=== PATIENT | female | born 1955 | race Two or more races ===

== ENCOUNTER → 2021-04-11 | Outpatient (CLI) | payer MEDICAID ==
[2021-04-11 10:00] LABS: Basophils # (auto) 0.1 10 ^3/uL (0-0.2); Basophils % (auto) 0.8 % (0.0-2.0); Eosinophils # (auto) 0.2 10 ^3/uL (0-0.8); Eosinophils % (auto) 3.7 % (0.0-7.0); Hematocrit 32.2 % (36.0-46.0); Hemoglobin 10.3 g/dL (12.2-16.2); Lymphocytes # (auto) 1.7 10 ^3/uL (0.4-5.4); Mean Corpuscular Hemoglobin 28.4 pg (28.0-32.0); Mean Corpuscular Hgb Conc. 32.1 g/dL (32.0-36.0); Mean Corpuscular Volume 88.5 fL (80.0-100.0); Monocytes # (auto) 0.3 10 ^3/uL (0-1.3); Neutrophils % (auto) 63.5 % (37.0-80.0); Red Blood Cells 3.64 10^6/uL (4.0-5.20); Red Cell Distribution Width 14.6 % (11.8-14.3); White Blood Cell 6.3 10^3/uL (4.4-10.8)
[2021-04-11 10:34] LABS: Albumin 3.5 g/dL (3.4-5.0); Calcium 7.3 mg/dL (8.5-10.1); Potassium 4.8 mmol/L (3.5-5.1)
[2021-04-11 10:43] LABS: BUN/Creatinine Ratio 9.9; Bilirubin, Total 0.5 mg/dL (0.2-1.0); Total Protein 6.5 g/dL (6.4-8.2)
== END | disposition home or self-care (01) ==
LOC: LAB 09:20
PROVIDERS: ATTEND Nurse Practitioner Family
DX: Z00.00 Encounter for general adult medical examination without abnormal findings (principal); I10 Essential (primary) hypertension; E11.9 Type 2 diabetes mellitus without complications; E03.9 Hypothyroidism, unspecified
CPT/HCPCS: 36415; 80053; 80061; 82043; 83036; 84439; 84443; 85025

== ENCOUNTER 2021-04-12 11:32 | Inpatient (IN) | payer MEDICAID ==
[~2021-04-12] VITALS: Ht 157.5 cm; Wt 63.8 kg
[2021-04-12 12:29] LABS: Basophils # (auto) 0.1 10 ^3/uL (0-0.2); Eosinophils # (auto) 0.1 10 ^3/uL (0-0.8); Eosinophils % (auto) 2.6 % (0.0-7.0); Hematocrit 32.4 % (36.0-46.0); Hemoglobin 10.4 g/dL (12.2-16.2); Lymphocytes # (auto) 1.4 10 ^3/uL (0.4-5.4); Lymphocytes % (auto) 24.5 % (10.0-50.0); Mean Corpuscular Hemoglobin 28.4 pg (28.0-32.0); Mean Corpuscular Hgb Conc. 31.9 g/dL (32.0-36.0); Monocytes # (auto) 0.2 10 ^3/uL (0-1.3); Monocytes % (auto) 3.6 % (0.0-12.0); Neutrophils # (auto) 3.9 10 ^3/uL (1.6-8.6); Neutrophils % (auto) 68.3 % (37.0-80.0); Red Blood Cells 3.64 10^6/uL (4.0-5.20); Red Cell Distribution Width 14.3 % (11.8-14.3); White Blood Cell 5.7 10^3/uL (4.4-10.8)
[2021-04-12 12:45] LABS: Albumin 3.5 g/dL (3.4-5.0); Calcium 6.6 mg/dL (8.5-10.1); Potassium 4.6 mmol/L (3.5-5.1)
[2021-04-12 12:50] LABS: BUN/Creatinine Ratio 10.2; Bilirubin, Total 0.4 mg/dL (0.2-1.0); Total Protein 7.1 g/dL (6.4-8.2)
[2021-04-12] MEDS ORDERED: CALCIUM GLUC 1,000mg/50ml-NS 50 ML IV ONE (15:00)
[2021-04-12] MEDS ORDERED: SODIUM CHLORIDE 0.9% 1,000 ML IV ONE (20:00)
[2021-04-12] MEDS ORDERED: LABETALOL HCL 5 MG/ML 4ML SYRINGE IV ONE (20:15)
[2021-04-12 20:39] LABS: Urine Bacteria FEW /hpf (None Seen); Urine Blood 1+ /uL (Negative); Urine Specific Gravity 1.012 (1.001-1.035); Urine WBC 7 /hpf (0 - 5)
[2021-04-12] MEDS ORDERED: hydrALAZINE HCL 20 MG/ML VL IV PRN (22:15)
[2021-04-12] MEDS ORDERED: HYDROcodone-ACET 5/325MG TAB PO PRN (23:15)
[2021-04-12] MEDS ORDERED: DOCUSATE SOD 100 MG CAP PO PRN (23:15)
[2021-04-12] MEDS ORDERED: DEXTROSE (50%) 50ML SYRG IV PRN (23:15)
[2021-04-12] MEDS ORDERED: amLODIPine BESYLATE 5 MG TAB PO ONE (23:15)
[2021-04-12] MEDS ORDERED: ONDANSETRON HCL 4 MG/2 ML VIAL IV PRN (23:15)
[2021-04-12] MEDS ORDERED: ACETAMINOPHEN 325 MG TAB PO PRN (23:15)
[2021-04-13] MEDS ORDERED: NITROGLYCERIN 0.4 MG SL TAB SL PRN
[2021-04-13] MEDS ORDERED: MORPHINE SULFATE INJECTION 2 MG/ML SYRG IV PRN
[2021-04-13] MEDS: SODIUM CHLORIDE 0.9% 1,000 ML IV SCH ×2 (02:19→20:30)
[2021-04-13 05:39] LABS: Basophils # (auto) 0.1 10 ^3/uL (0-0.2); Basophils % (auto) 0.9 % (0.0-2.0); Eosinophils # (auto) 0.2 10 ^3/uL (0-0.8); Eosinophils % (auto) 2.7 % (0.0-7.0); Hematocrit 31.1 % (36.0-46.0); Lymphocytes # (auto) 2.2 10 ^3/uL (0.4-5.4); Lymphocytes % (auto) 32.2 % (10.0-50.0); Mean Corpuscular Hemoglobin 28.2 pg (28.0-32.0); Mean Corpuscular Hgb Conc. 32.2 g/dL (32.0-36.0); Mean Corpuscular Volume 87.7 fL (80.0-100.0); Monocytes # (auto) 0.3 10 ^3/uL (0-1.3); Monocytes % (auto) 4.1 % (0.0-12.0); Neutrophils # (auto) 4.2 10 ^3/uL (1.6-8.6); Neutrophils % (auto) 60.1 % (37.0-80.0); Nucleated Red Blood Cells % 0.1 %; Red Blood Cells 3.54 10^6/uL (4.0-5.20); Red Cell Distribution Width 14.4 % (11.8-14.3); White Blood Cell 6.9 10^3/uL (4.4-10.8)
[2021-04-13 05:57] LABS: Potassium 3.9 mmol/L (3.5-5.1)
[2021-04-13 06:07] LABS: BUN/Creatinine Ratio 9.8; Bilirubin, Total 0.3 mg/dL (0.2-1.0); Calcium 6.6 mg/dL (8.5-10.1); Total Protein 6.1 g/dL (6.4-8.2)
[2021-04-13] MEDS: ACCU-CHEK COMFORT CURVE STRIP VI SCH ×4 (07:05→21:45)
[2021-04-13] MEDS: HEPARIN SODIUM (PORCINE) 5000 UNITS/ML 1ML VIAL SC SCH ×3 (07:06→21:38)
[2021-04-13] MEDS: InsuLIN REG 1unit/0.01ml Soln (100units/ml) SC SCH ×4 (07:07→21:46)
[2021-04-13] MEDS ORDERED: ZINC SULFATE 220mg CAP or TAB PO SCH (10:00)
[2021-04-13] MEDS ORDERED: ASCORBIC ACID 500 MG TAB PO SCH (10:00)
[2021-04-13] MEDS: METOPROLOL TARTRATE 50 MG TAB PO SCH ×2 (11:33→21:35)
[2021-04-13] MEDS: ASPirin 81 mg TAB PO SCH (11:33)
[2021-04-13] MEDS: amLODIPine BESYLATE 5 MG TAB PO SCH (11:34)
[2021-04-13] MEDS: MULTIPLE VITAMIN TAB PO SCH (11:34)
[2021-04-13 15:10] VITALS: BP 145/65
[2021-04-13 16:55] VITALS: BP 145/65
[2021-04-13 20:00] VITALS: BP 145/70
[2021-04-13] MEDS: ATORVASTATIN 20 MG TAB PO SCH (21:35)
[2021-04-13 21:40] VITALS: BP 146/73
[2021-04-14 04:25] VITALS: BP 121/60
[2021-04-14] MEDS: InsuLIN REG 1unit/0.01ml Soln (100units/ml) SC SCH ×4 (05:28→22:00)
[2021-04-14] MEDS: SODIUM CHLORIDE 0.9% 1,000 ML IV SCH (05:28)
[2021-04-14 07:15] LABS: Calcium 6.7 mg/dL (8.5-10.1); Potassium 4.6 mmol/L (3.5-5.1)
[2021-04-14 07:21] LABS: BUN/Creatinine Ratio 9.9; Phosphorus 6.2 mg/dL (2.5-4.90)
[2021-04-14 08:00] VITALS: BP 122/87
[2021-04-14 09:00] VITALS: BP 122/87
[2021-04-14] MEDS: ACCU-CHEK COMFORT CURVE STRIP VI SCH ×4 (09:47→22:00)
[2021-04-14] MEDS: HEPARIN SODIUM (PORCINE) 5000 UNITS/ML 1ML VIAL SC SCH ×3 (09:47→22:42)
[2021-04-14] MEDS: ASPirin 81 mg TAB PO SCH (09:47)
[2021-04-14] MEDS: amLODIPine BESYLATE 5 MG TAB PO SCH (09:48)
[2021-04-14] MEDS: MULTIPLE VITAMIN TAB PO SCH (09:48)
[2021-04-14] MEDS: METOPROLOL TARTRATE 50 MG TAB PO SCH ×2 (09:48→22:40)
[2021-04-14 20:00] VITALS: BP 135/55
[2021-04-14 22:00] VITALS: BP 135/55
[2021-04-14] MEDS: ATORVASTATIN 20 MG TAB PO SCH (22:40)
[2021-04-15] MEDS: SODIUM CHLORIDE 0.9% 1,000 ML IV SCH (01:15)
[2021-04-15 05:00] VITALS: BP 127/50
[2021-04-15] MEDS: InsuLIN REG 1unit/0.01ml Soln (100units/ml) SC SCH ×4 (07:00→22:00)
[2021-04-15] MEDS: HEPARIN SODIUM (PORCINE) 5000 UNITS/ML 1ML VIAL SC SCH ×3 (07:13→22:38)
[2021-04-15] MEDS: ACCU-CHEK COMFORT CURVE STRIP VI SCH ×4 (07:16→22:00)
[2021-04-15 08:00] VITALS: BP 134/54
[2021-04-15 08:27] LABS: Calcium 6.5 mg/dL (8.5-10.1); Potassium 4.7 mmol/L (3.5-5.1)
[2021-04-15 08:29] LABS: BUN/Creatinine Ratio 10.2
[2021-04-15] MEDS: ASPirin 81 mg TAB PO SCH (09:34)
[2021-04-15] MEDS: METOPROLOL TARTRATE 50 MG TAB PO SCH ×2 (09:35→22:39)
[2021-04-15] MEDS: amLODIPine BESYLATE 5 MG TAB PO SCH (09:35)
[2021-04-15] MEDS: MULTIPLE VITAMIN TAB PO SCH (09:35)
[2021-04-15] MEDS: SODIUM BICARBONATE 50ML VIAL 50 ML in SOD CHL 0.45% 1,000 ML IV SCH (16:22)
[2021-04-15 20:00] VITALS: BP 158/78
[2021-04-15 22:00] VITALS: BP 158/78
[2021-04-15] MEDS: ATORVASTATIN 20 MG TAB PO SCH (22:00)
[2021-04-16 05:00] VITALS: BP 143/70
[2021-04-16] MEDS: HEPARIN SODIUM (PORCINE) 5000 UNITS/ML 1ML VIAL SC SCH ×3 (06:23→21:24)
[2021-04-16] MEDS: ACCU-CHEK COMFORT CURVE STRIP VI SCH ×4 (06:34→21:33)
[2021-04-16] MEDS: InsuLIN REG 1unit/0.01ml Soln (100units/ml) SC SCH ×4 (06:34→21:37)
[2021-04-16 07:26] LABS: Potassium 4.8 mmol/L (3.5-5.1)
[2021-04-16 07:42] LABS: BUN/Creatinine Ratio 9.4; Calcium 6.4 mg/dL (8.5-10.1)
[2021-04-16 08:30] VITALS: BP 157/74
[2021-04-16] MEDS: METOPROLOL TARTRATE 50 MG TAB PO SCH ×2 (09:41→21:23)
[2021-04-16] MEDS: ASPirin 81 mg TAB PO SCH (09:41)
[2021-04-16] MEDS: MULTIPLE VITAMIN TAB PO SCH (09:41)
[2021-04-16] MEDS: amLODIPine BESYLATE 5 MG TAB PO SCH (09:42)
[2021-04-16] MEDS: SODIUM BICARBONATE 50ML VIAL 50 ML in SOD CHL 0.45% 1,000 ML IV SCH (10:45)
[2021-04-16] MEDS: hydrALAZINE HCL 25 MG TAB PO SCH ×3 (12:09→23:37)
[2021-04-16 13:00] VITALS: BP 130/67
[2021-04-16 15:56] LABS: Basophils # (auto) 0.1 10 ^3/uL (0-0.2); Basophils % (auto) 1.8 % (0.0-2.0); Eosinophils # (auto) 0.1 10 ^3/uL (0-0.8); Eosinophils % (auto) 1.3 % (0.0-7.0); Hematocrit 28.8 % (36.0-46.0); Hemoglobin 9.5 g/dL (12.2-16.2); Lymphocytes # (auto) 1.9 10 ^3/uL (0.4-5.4); Lymphocytes % (auto) 36.6 % (10.0-50.0); Mean Corpuscular Volume 87.9 fL (80.0-100.0); Monocytes # (auto) 0.3 10 ^3/uL (0-1.3); Monocytes % (auto) 5.4 % (0.0-12.0); Neutrophils # (auto) 2.9 10 ^3/uL (1.6-8.6); Neutrophils % (auto) 54.9 % (37.0-80.0); Nucleated Red Blood Cells % 0.1 %; Red Blood Cells 3.28 10^6/uL (4.0-5.20); Red Cell Distribution Width 14.5 % (11.8-14.3); White Blood Cell 5.2 10^3/uL (4.4-10.8)
[2021-04-16 16:32] LABS: INR 0.99 (0.9-1.15); Partial Thromboplastin Time 26.5 sec (23.6-33.0)
[2021-04-16 17:00] VITALS: BP 144/62
[2021-04-16 21:00] VITALS: BP 128/58
[2021-04-16] MEDS: ATORVASTATIN 20 MG TAB PO SCH (21:24)
[2021-04-17] MEDS: hydrALAZINE HCL 25 MG TAB PO SCH ×3 (06:10→16:50)
[2021-04-17] MEDS: HEPARIN SODIUM (PORCINE) 5000 UNITS/ML 1ML VIAL SC SCH ×2 (06:11→14:00)
[2021-04-17] MEDS: InsuLIN REG 1unit/0.01ml Soln (100units/ml) SC SCH ×4 (06:15→21:55)
[2021-04-17] MEDS: ACCU-CHEK COMFORT CURVE STRIP VI SCH ×4 (06:16→21:54)
[2021-04-17 06:26] VITALS: BP 149/71
[2021-04-17 06:32] LABS: BUN/Creatinine Ratio 9.6; Magnesium 2.5 mg/dL (1.6-2.6); Potassium 4.9 mmol/L (3.5-5.1)
[2021-04-17 09:00] VITALS: BP 120/65
[2021-04-17] MEDS: ASPirin 81 mg TAB PO SCH (09:16)
[2021-04-17] MEDS: MULTIPLE VITAMIN TAB PO SCH (09:16)
[2021-04-17] MEDS: CHOLECALCIFEROL (VITD3) 2,000 UNIT CAP/TAB PO SCH (09:16)
[2021-04-17] MEDS: ISOSORBIDE MONONITRATE ER 60 MG TAB PO SCH (09:48)
[2021-04-17] MEDS: amLODIPine BESYLATE 5 MG TAB PO SCH (09:49)
[2021-04-17] MEDS: METOPROLOL TARTRATE 50 MG TAB PO SCH ×2 (09:49→21:36)
[2021-04-17] MEDS: CALCIUM ACETATE 667 MG CAP PO SCH (16:50)
[2021-04-17 17:00] VITALS: BP 135/62
[2021-04-17] MEDS: ATORVASTATIN 20 MG TAB PO SCH (21:35)
[2021-04-17 22:00] VITALS: BP 136/77
[2021-04-18] MEDS: hydrALAZINE HCL 25 MG TAB PO SCH ×4 (00:12→18:00)
[2021-04-18 05:00] VITALS: BP 130/54
[2021-04-18] MEDS: InsuLIN REG 1unit/0.01ml Soln (100units/ml) SC SCH ×4 (06:19→22:03)
[2021-04-18] MEDS: ACCU-CHEK COMFORT CURVE STRIP VI SCH ×4 (06:19→22:00)
[2021-04-18 06:37] LABS: BUN/Creatinine Ratio 10.1; Calcium 6.3 mg/dL (8.5-10.1); Potassium 5.4 mmol/L (3.5-5.1)
[2021-04-18 06:50] LABS: % Iron Saturation 41.1 % (15-50)
[2021-04-18] MEDS: METOPROLOL TARTRATE 50 MG TAB PO SCH ×2 (10:00→22:00)
[2021-04-18] MEDS: amLODIPine BESYLATE 5 MG TAB PO SCH (10:00)
[2021-04-18 10:11] VITALS: BP 145/69
[2021-04-18] MEDS: CALCIUM ACETATE 667 MG CAP PO SCH ×3 (10:15→18:00)
[2021-04-18] MEDS: CHOLECALCIFEROL (VITD3) 2,000 UNIT CAP/TAB PO SCH (10:15)
[2021-04-18] MEDS: ASPirin 81 mg TAB PO SCH (10:15)
[2021-04-18] MEDS: MULTIPLE VITAMIN TAB PO SCH (10:15)
[2021-04-18] MEDS: ISOSORBIDE MONONITRATE ER 60 MG TAB PO SCH (10:16)
[2021-04-18 10:17] LABS: Basophils # (auto) 0.1 10 ^3/uL (0-0.2); Basophils % (auto) 0.8 % (0.0-2.0); Eosinophils # (auto) 0.1 10 ^3/uL (0-0.8); Eosinophils % (auto) 1.3 % (0.0-7.0); Hematocrit 27.9 % (36.0-46.0); Hemoglobin 9.2 g/dL (12.2-16.2); Lymphocytes % (auto) 29.1 % (10.0-50.0); Mean Corpuscular Hemoglobin 28.9 pg (28.0-32.0); Mean Corpuscular Hgb Conc. 32.8 g/dL (32.0-36.0); Mean Corpuscular Volume 88.1 fL (80.0-100.0); Monocytes # (auto) 0.4 10 ^3/uL (0-1.3); Monocytes % (auto) 6.3 % (0.0-12.0); Neutrophils # (auto) 4.4 10 ^3/uL (1.6-8.6); Neutrophils % (auto) 62.5 % (37.0-80.0); Nucleated Red Blood Cells % 0.1 %; Red Blood Cells 3.17 10^6/uL (4.0-5.20); Red Cell Distribution Width 14.5 % (11.8-14.3)
[2021-04-18 10:29] LABS: INR 0.99 (0.9-1.15); Partial Thromboplastin Time 25.4 sec (23.6-33.0)
[2021-04-18] MEDS ORDERED: LIDOCAINE 2%HCL (LOCAL ANESTH.) INJ 20ML MDV ONE (12:23)
[2021-04-18] MEDS ORDERED: HEPARIN SODIUM (PORCINE) 5000 UNITS/ML 1ML VIAL ONE (13:27)
[2021-04-18] MEDS ORDERED: fentaNYL CITRATE 100 MCG/2 ML VL ONE (13:27)
[2021-04-18] MEDS ORDERED: MIDAZOLAM HCL 2MG/2ML 2ml VIAL (1mg/ml) ONE (13:28)
[2021-04-18 14:30] VITALS: BP 131/66
[2021-04-18 20:00] VITALS: BP 142/65
[2021-04-18 21:41] VITALS: BP 131/72
[2021-04-18] MEDS: ATORVASTATIN 20 MG TAB PO SCH (21:59)
[2021-04-19] MEDS: hydrALAZINE HCL 25 MG TAB PO SCH ×4 (00:21→18:00)
[2021-04-19] MEDS ORDERED: DIGOXIN (250MCG/ML) 2 ML AMPULE IV ONE ×2 (03:30→04:00)
[2021-04-19 05:00] VITALS: BP 114/52
[2021-04-19 06:03] LABS: Basophils # (auto) 0 10 ^3/uL (0-0.2); Basophils % (auto) 0.5 % (0.0-2.0); Eosinophils # (auto) 0 10 ^3/uL (0-0.8); Eosinophils % (auto) 0.1 % (0.0-7.0); Hematocrit 30.3 % (36.0-46.0); Hemoglobin 10.2 g/dL (12.2-16.2); Lymphocytes # (auto) 1.1 10 ^3/uL (0.4-5.4); Lymphocytes % (auto) 11.2 % (10.0-50.0); Mean Corpuscular Hemoglobin 29.4 pg (28.0-32.0); Mean Corpuscular Hgb Conc. 33.6 g/dL (32.0-36.0); Mean Corpuscular Volume 87.3 fL (80.0-100.0); Monocytes # (auto) 0.6 10 ^3/uL (0-1.3); Monocytes % (auto) 5.7 % (0.0-12.0); Neutrophils # (auto) 8.2 10 ^3/uL (1.6-8.6); Neutrophils % (auto) 82.5 % (37.0-80.0); Red Blood Cells 3.47 10^6/uL (4.0-5.20); Red Cell Distribution Width 14.9 % (11.8-14.3); White Blood Cell 9.9 10^3/uL (4.4-10.8)
[2021-04-19 06:23] LABS: Potassium 4.6 mmol/L (3.5-5.1)
[2021-04-19 06:29] LABS: Albumin 3.1 g/dL (3.4-5.0); BUN/Creatinine Ratio 7.6; Calcium 7.5 mg/dL (8.5-10.1)
[2021-04-19 06:32] LABS: Bilirubin, Total 0.6 mg/dL (0.2-1.0)
[2021-04-19 09:00] VITALS: BP 173/71
[2021-04-19 09:45] VITALS: BP 162/71
[2021-04-19] MEDS: CALCIUM ACETATE 667 MG CAP PO SCH ×3 (09:55→18:00)
[2021-04-19] MEDS: MULTIPLE VITAMIN TAB PO SCH (09:55)
[2021-04-19] MEDS: CHOLECALCIFEROL (VITD3) 2,000 UNIT CAP/TAB PO SCH (09:56)
[2021-04-19] MEDS: METOPROLOL TARTRATE 50 MG TAB PO SCH ×2 (09:57→21:43)
[2021-04-19] MEDS: ASPirin 81 mg TAB PO SCH (10:00)
[2021-04-19] MEDS: amLODIPine BESYLATE 5 MG TAB PO SCH (10:00)
[2021-04-19] MEDS: ACCU-CHEK COMFORT CURVE STRIP VI SCH ×4 (10:00→21:46)
[2021-04-19] MEDS: ISOSORBIDE MONONITRATE ER 60 MG TAB PO SCH (10:00)
[2021-04-19] MEDS: InsuLIN REG 1unit/0.01ml Soln (100units/ml) SC SCH ×2 (11:30→21:44)
[2021-04-19 15:18] LABS: Hepatitis A Ab IgM Negative; Hepatitis B Core IgM Negative; Hepatitis C Antibody Negative (Negative)
[2021-04-19 15:30] VITALS: BP 140/70
[2021-04-19 20:00] VITALS: BP 125/61
[2021-04-19 21:01] VITALS: BP 125/61
[2021-04-19] MEDS: ATORVASTATIN 20 MG TAB PO SCH (21:42)
[2021-04-20 05:23] VITALS: BP 148/57
[2021-04-20 05:56] LABS: Basophils # (auto) 0.1 10 ^3/uL (0-0.2); Basophils % (auto) 0.7 % (0.0-2.0); Eosinophils # (auto) 0 10 ^3/uL (0-0.8); Eosinophils % (auto) 0.3 % (0.0-7.0); Hematocrit 28.9 % (36.0-46.0); Hemoglobin 9.7 g/dL (12.2-16.2); Lymphocytes % (auto) 24.4 % (10.0-50.0); Mean Corpuscular Hemoglobin 29.2 pg (28.0-32.0); Mean Corpuscular Hgb Conc. 33.4 g/dL (32.0-36.0); Mean Corpuscular Volume 87.2 fL (80.0-100.0); Monocytes # (auto) 0.6 10 ^3/uL (0-1.3); Neutrophils # (auto) 5.6 10 ^3/uL (1.6-8.6); Neutrophils % (auto) 67.6 % (37.0-80.0); Red Blood Cells 3.31 10^6/uL (4.0-5.20); Red Cell Distribution Width 14.4 % (11.8-14.3); White Blood Cell 8.2 10^3/uL (4.4-10.8)
[2021-04-20 06:28] LABS: Potassium 4.9 mmol/L (3.5-5.1)
[2021-04-20 06:31] LABS: Albumin 2.8 g/dL (3.4-5.0); BUN/Creatinine Ratio 7.6; Calcium 7.9 mg/dL (8.5-10.1)
[2021-04-20 06:34] LABS: Bilirubin, Total 0.6 mg/dL (0.2-1.0); Total Protein 5.6 g/dL (6.4-8.2)
[2021-04-20] MEDS: InsuLIN REG 1unit/0.01ml Soln (100units/ml) SC SCH ×4 (07:00→22:00)
[2021-04-20] MEDS: ACCU-CHEK COMFORT CURVE STRIP VI SCH ×4 (07:00→22:00)
[2021-04-20] MEDS: hydrALAZINE HCL 25 MG TAB PO SCH ×4 (07:05→17:40)
[2021-04-20 08:00] VITALS: BP 142/64
[2021-04-20] MEDS: CALCIUM ACETATE 667 MG CAP PO SCH ×3 (08:00→17:40)
[2021-04-20 09:00] VITALS: BP 149/66
[2021-04-20] MEDS: ASPirin 81 mg TAB PO SCH (09:31)
[2021-04-20] MEDS: LOSARTAN POTASSIUM 50 MG TAB PO SCH (09:31)
[2021-04-20] MEDS: MULTIPLE VITAMIN TAB PO SCH (09:31)
[2021-04-20] MEDS: METOPROLOL TARTRATE 50 MG TAB PO SCH ×2 (09:31→22:19)
[2021-04-20] MEDS: ISOSORBIDE MONONITRATE ER 60 MG TAB PO SCH (09:31)
[2021-04-20] MEDS: amLODIPine BESYLATE 5 MG TAB PO SCH (09:32)
[2021-04-20] MEDS: CHOLECALCIFEROL (VITD3) 2,000 UNIT CAP/TAB PO SCH (09:32)
[2021-04-20 17:00] VITALS: BP 120/72
[2021-04-20 20:00] VITALS: BP 138/57
[2021-04-20 21:57] VITALS: BP 138/57
[2021-04-20] MEDS: ATORVASTATIN 20 MG TAB PO SCH (22:19)
[2021-04-21] MEDS: hydrALAZINE HCL 25 MG TAB PO SCH ×4 (02:09→17:17)
[2021-04-21 04:59] VITALS: BP 117/56
[2021-04-21 06:30] LABS: Basophils # (auto) 0.1 10 ^3/uL (0-0.2); Basophils % (auto) 0.7 % (0.0-2.0); Eosinophils # (auto) 0 10 ^3/uL (0-0.8); Eosinophils % (auto) 0.5 % (0.0-7.0); Hematocrit 27.9 % (36.0-46.0); Hemoglobin 9.3 g/dL (12.2-16.2); Lymphocytes # (auto) 2.2 10 ^3/uL (0.4-5.4); Lymphocytes % (auto) 28.6 % (10.0-50.0); Mean Corpuscular Hemoglobin 29.4 pg (28.0-32.0); Mean Corpuscular Hgb Conc. 33.5 g/dL (32.0-36.0); Mean Corpuscular Volume 87.8 fL (80.0-100.0); Monocytes # (auto) 0.6 10 ^3/uL (0-1.3); Monocytes % (auto) 8.3 % (0.0-12.0); Neutrophils # (auto) 4.7 10 ^3/uL (1.6-8.6); Neutrophils % (auto) 61.9 % (37.0-80.0); Nucleated Red Blood Cells % 0.1 %; Red Blood Cells 3.17 10^6/uL (4.0-5.20); White Blood Cell 7.6 10^3/uL (4.4-10.8)
[2021-04-21 06:46] LABS: Potassium 4.5 mmol/L (3.5-5.1)
[2021-04-21] MEDS: InsuLIN REG 1unit/0.01ml Soln (100units/ml) SC SCH ×4 (07:00→22:22)
[2021-04-21] MEDS: ACCU-CHEK COMFORT CURVE STRIP VI SCH ×4 (07:00→22:25)
[2021-04-21 07:01] LABS: Albumin 2.8 g/dL (3.4-5.0); BUN/Creatinine Ratio 8.3; Bilirubin, Total 0.6 mg/dL (0.2-1.0); Calcium 7.6 mg/dL (8.5-10.1); Total Protein 5.3 g/dL (6.4-8.2)
[2021-04-21 08:30] VITALS: BP 153/55
[2021-04-21] MEDS: amLODIPine BESYLATE 5 MG TAB PO SCH (10:00)
[2021-04-21] MEDS: ISOSORBIDE MONONITRATE ER 60 MG TAB PO SCH (10:00)
[2021-04-21] MEDS: LOSARTAN POTASSIUM 50 MG TAB PO SCH (10:00)
[2021-04-21] MEDS: METOPROLOL TARTRATE 50 MG TAB PO SCH ×2 (10:00→22:18)
[2021-04-21] MEDS ORDERED: SODIUM CHL 0.9% 1000 ML BAG XX ONE (10:15)
[2021-04-21] MEDS: CALCIUM ACETATE 667 MG CAP PO SCH ×3 (10:33→17:16)
[2021-04-21] MEDS: CHOLECALCIFEROL (VITD3) 2,000 UNIT CAP/TAB PO SCH (10:33)
[2021-04-21] MEDS: ASPirin 81 mg TAB PO SCH (10:33)
[2021-04-21] MEDS: MULTIPLE VITAMIN TAB PO SCH (10:35)
[2021-04-21 12:58] VITALS: BP 128/56
[2021-04-21 16:18] VITALS: BP 155/69
[2021-04-21 22:00] VITALS: BP 148/59
[2021-04-21] MEDS: ATORVASTATIN 20 MG TAB PO SCH (22:17)
[2021-04-22 05:00] VITALS: BP 118/47
[2021-04-22] MEDS: hydrALAZINE HCL 25 MG TAB PO SCH ×4 (05:56→17:38)
[2021-04-22] MEDS: InsuLIN REG 1unit/0.01ml Soln (100units/ml) SC SCH ×4 (06:07→23:44)
[2021-04-22] MEDS: ACCU-CHEK COMFORT CURVE STRIP VI SCH ×4 (06:07→22:12)
[2021-04-22] MEDS: CALCIUM ACETATE 667 MG CAP PO SCH ×3 (08:15→17:58)
[2021-04-22 09:00] VITALS: BP 128/61
[2021-04-22] MEDS: MULTIPLE VITAMIN TAB PO SCH (10:00)
[2021-04-22] MEDS: LOSARTAN POTASSIUM 50 MG TAB PO SCH (10:12)
[2021-04-22] MEDS: CHOLECALCIFEROL (VITD3) 2,000 UNIT CAP/TAB PO SCH (10:12)
[2021-04-22] MEDS: amLODIPine BESYLATE 5 MG TAB PO SCH (10:13)
[2021-04-22] MEDS: ASPirin 81 mg TAB PO SCH (10:13)
[2021-04-22] MEDS: METOPROLOL TARTRATE 50 MG TAB PO SCH ×2 (10:14→22:12)
[2021-04-22] MEDS: ISOSORBIDE MONONITRATE ER 60 MG TAB PO SCH (10:15)
[2021-04-22 12:29] VITALS: BP 124/99
[2021-04-22 13:00] VITALS: BP 107/48
[2021-04-22 17:00] VITALS: BP 132/44
[2021-04-22 22:00] VITALS: BP 112/49
[2021-04-22] MEDS: ATORVASTATIN 20 MG TAB PO SCH (22:12)
[2021-04-23] VITALS (7 sets, daily range): BP systolic 116–152; BP diastolic 49–74
[2021-04-23] MEDS: hydrALAZINE HCL 25 MG TAB PO SCH ×4 (00:21→18:00)
[2021-04-23] MEDS: ACCU-CHEK COMFORT CURVE STRIP VI SCH ×4 (06:23→20:32)
[2021-04-23] MEDS: InsuLIN REG 1unit/0.01ml Soln (100units/ml) SC SCH ×4 (06:25→20:31)
[2021-04-23] MEDS: CALCIUM ACETATE 667 MG CAP PO SCH ×2 (08:00→12:00)
[2021-04-23] MEDS ORDERED: SODIUM CHL 0.9% 1000 ML BAG XX ONE (09:00)
[2021-04-23] MEDS: amLODIPine BESYLATE 5 MG TAB PO SCH (10:00)
[2021-04-23] MEDS: METOPROLOL TARTRATE 50 MG TAB PO SCH (10:00)
[2021-04-23] MEDS: LOSARTAN POTASSIUM 50 MG TAB PO SCH (10:00)
[2021-04-23] MEDS: ISOSORBIDE MONONITRATE ER 60 MG TAB PO SCH (10:00)
[2021-04-23] MEDS: ASPirin 81 mg TAB PO SCH (10:00)
[2021-04-23] MEDS: MULTIPLE VITAMIN TAB PO SCH (10:00)
[2021-04-23] MEDS: CHOLECALCIFEROL (VITD3) 2,000 UNIT CAP/TAB PO SCH (10:00)
[2021-04-23] MEDS ORDERED: EPOETIN ALFA-EPBX 10,000 UNIT/1ML VIAL SC ONE (21:00)
[2021-04-23] MEDS: ATORVASTATIN 20 MG TAB PO SCH (21:52)
[2021-04-24] MEDS: METOPROLOL TARTRATE 50 MG TAB PO SCH ×3 (01:16→22:40)
[2021-04-24 05:28] VITALS: BP 135/91
[2021-04-24] MEDS: hydrALAZINE HCL 25 MG TAB PO SCH ×4 (06:00→18:00)
[2021-04-24] MEDS: InsuLIN REG 1unit/0.01ml Soln (100units/ml) SC SCH ×4 (06:49→22:48)
[2021-04-24] MEDS: ACCU-CHEK COMFORT CURVE STRIP VI SCH ×4 (06:50→22:38)
[2021-04-24] MEDS: CALCIUM ACETATE 667 MG CAP PO SCH ×4 (08:00→17:04)
[2021-04-24 09:00] VITALS: BP 119/47
[2021-04-24] MEDS: ASPirin 81 mg TAB PO SCH (09:57)
[2021-04-24] MEDS: CHOLECALCIFEROL (VITD3) 2,000 UNIT CAP/TAB PO SCH (09:59)
[2021-04-24] MEDS: MULTIPLE VITAMIN TAB PO SCH (09:59)
[2021-04-24] MEDS: ISOSORBIDE MONONITRATE ER 60 MG TAB PO SCH (10:00)
[2021-04-24] MEDS: amLODIPine BESYLATE 5 MG TAB PO SCH (10:01)
[2021-04-24] MEDS: LOSARTAN POTASSIUM 50 MG TAB PO SCH (10:02)
[2021-04-24 12:35] VITALS: BP 101/50
[2021-04-24 17:00] VITALS: BP 125/57
[2021-04-24 22:00] VITALS: BP 114/53
[2021-04-24] MEDS: ATORVASTATIN 20 MG TAB PO SCH (22:35)
[2021-04-25 05:00] VITALS: BP 109/57
[2021-04-25] MEDS: InsuLIN REG 1unit/0.01ml Soln (100units/ml) SC SCH ×3 (06:44→17:00)
[2021-04-25] MEDS: ACCU-CHEK COMFORT CURVE STRIP VI SCH ×3 (06:46→17:00)
[2021-04-25 08:59] VITALS: BP 105/53
[2021-04-25] MEDS: MULTIPLE VITAMIN TAB PO SCH (09:17)
[2021-04-25] MEDS: ASPirin 81 mg TAB PO SCH (09:17)
[2021-04-25] MEDS: CHOLECALCIFEROL (VITD3) 2,000 UNIT CAP/TAB PO SCH (09:17)
[2021-04-25] MEDS: ISOSORBIDE MONONITRATE ER 60 MG TAB PO SCH (09:18)
[2021-04-25] MEDS: METOPROLOL TARTRATE 50 MG TAB PO SCH (09:19)
[2021-04-25] MEDS: CALCIUM ACETATE 667 MG CAP PO SCH ×3 (09:20→17:37)
[2021-04-25] MEDS: LOSARTAN POTASSIUM 50 MG TAB PO SCH (10:00)
[2021-04-25] MEDS: amLODIPine BESYLATE 5 MG TAB PO SCH (10:00)
[2021-04-25] MEDS: hydrALAZINE HCL 25 MG TAB PO SCH ×2 (11:50→17:37)
[2021-04-25 16:58] VITALS: BP 114/64
== END 2021-04-25 19:00 | disposition home or self-care (01) | DRG 469 ==
LOC: ER 11:32 → TELE 23:56 → TELE-WESTW 04-13 15:03
PROVIDERS: ADMIT Nurse Practitioner Family; ATTEND Family Medicine
PROC: 0JH63XZ Insertion of Tunneled Vascular Access Device into Chest Subcutaneous Tissue and Fascia, Percutaneous Approach (ICD-10-PCS; principal; 2021-04-18)
PROC: 02H633Z Insertion of Infusion Device into Right Atrium, Percutaneous Approach (ICD-10-PCS; 2021-04-18)
PROC: B5181ZA Fluoroscopy of Superior Vena Cava using Low Osmolar Contrast, Guidance (ICD-10-PCS; 2021-04-18)
PROC: B543ZZA Ultrasonography of Right Jugular Veins, Guidance (ICD-10-PCS; 2021-04-18)
PROC: 5A1D70Z Performance of Urinary Filtration, Intermittent, Less than 6 Hours Per Day (ICD-10-PCS; 2021-04-18)
PROC: 5A1D70Z Performance of Urinary Filtration, Intermittent, Less than 6 Hours Per Day (ICD-10-PCS; 2021-04-21)
PROC: 5A1D70Z Performance of Urinary Filtration, Intermittent, Less than 6 Hours Per Day (ICD-10-PCS; 2021-04-23)
DX: N17.0 Acute kidney failure with tubular necrosis (principal); I21.A1 Myocardial infarction type 2; I12.0 Hypertensive chronic kidney disease with stage 5 chronic kidney disease or end stage renal disease; D63.1 Anemia in chronic kidney disease; E83.39 Other disorders of phosphorus metabolism; E83.51 Hypocalcemia; I16.0 Hypertensive urgency; N18.6 End stage renal disease; E11.65 Type 2 diabetes mellitus with hyperglycemia; Z20.822 Contact with and (suspected) exposure to COVID-19; E11.22 Type 2 diabetes mellitus with diabetic chronic kidney disease; E87.5 Hyperkalemia; N25.81 Secondary hyperparathyroidism of renal origin; Z91.14 Patient's other noncompliance with medication regimen; Z82.49 Family history of ischemic heart disease and other diseases of the circulatory system; Z83.3 Family history of diabetes mellitus; Z99.2 Dependence on renal dialysis
CPT/HCPCS: 36415; 36558; 71045; 76000; 76775; 76942; 77001; 80048; 80053; 80061; 80074; 81001; 82306; 82962; 83540; 83550; 83735; 83880; 83970; 84100; 84443; 84484; 84550; 85025; 85610; 85730; 86850; 86900; 86901; 87426; 90935; 93005; 93306; 96365; 96375; 99152; G0378; J1642; J1815; J2250; J3490

== ENCOUNTER 2022-03-12 18:11 | Inpatient (IN) | payer MEDICARE, MEDICAID ==
[~2022-03-12] VITALS: Ht 162.6 cm; Wt 59.6 kg
[2022-03-12] MEDS ORDERED: SODIUM CHLORIDE 0.9% 250 ML IV ONE (18:30)
[2022-03-12] MEDS ORDERED: ONDANSETRON HCL 4 MG/2 ML VIAL IV ONE (18:30)
[2022-03-12 19:22] LABS: Basophils # (auto) 0 10 ^3/uL (0-0.2); Basophils % (auto) 0.1 % (0.0-2.0); Eosinophils # (auto) 0 10 ^3/uL (0-0.8); Eosinophils % (auto) 0.1 % (0.0-7.0); Hemoglobin 10.3 g/dL (12.2-16.2); Lymphocytes # (auto) 1.3 10 ^3/uL (0.4-5.4); Lymphocytes % (auto) 11.5 % (10.0-50.0); Mean Corpuscular Hgb Conc. 32.3 g/dL (32.0-36.0); Mean Corpuscular Volume 95.8 fL (80.0-100.0); Monocytes # (auto) 0.6 10 ^3/uL (0-1.3); Monocytes % (auto) 4.9 % (0.0-12.0); Neutrophils # (auto) 9.8 10 ^3/uL (1.6-8.6); Neutrophils % (auto) 83.4 % (37.0-80.0); Nucleated Red Blood Cells % 0.1 %; Red Blood Cells 3.34 10^6/uL (4.0-5.20); Red Cell Distribution Width 15.4 % (11.8-14.3); White Blood Cell 11.7 10^3/uL (4.4-10.8)
[2022-03-12 19:41] LABS: BUN/Creatinine Ratio 6.5; Calcium 7.2 mg/dL (8.5-10.1); Potassium 3.9 mmol/L (3.5-5.1)
[2022-03-12 19:45] LABS: Bilirubin, Total 0.4 mg/dL (0.2-1.0); Total Protein 5.5 g/dL (6.4-8.2)
[2022-03-12 19:50] LABS: Partial Thromboplastin Time 60.9 sec (24.6-33.4)
[2022-03-12 19:54] LABS: INR 7.47 (0.9-1.15)
[2022-03-12] MEDS ORDERED: PHYTONADIONE(VIT K) 5 MG TAB PO ONE (20:15)
[2022-03-12] MEDS ORDERED: PHYTONADIONE(VitK) ORAL Susp 10mg/10ml(1mg/ml) PO ONE (20:20)
[2022-03-12] MEDS ORDERED: ONDANSETRON HCL 4 MG/2 ML VIAL IV PRN (20:45)
[2022-03-12] MEDS ORDERED: MORPHINE SULFATE INJ 2 MG/ml SYRG IV PRN (20:45)
[2022-03-12] MEDS ORDERED: NITROGLYCERIN 0.4 MG SL TAB SL PRN (20:45)
[2022-03-12] MEDS ORDERED: hydrALAZINE HCL 20 MG/ML VL IV PRN (20:45)
[2022-03-12] MEDS ORDERED: PHYTONADIONE (VIT K)10 MG/ML 1ML VIAL SUBCUT ONE (21:30)
[2022-03-12] MEDS: PANTOPRAZOLE 40 MG/10 ML VIAL INJ IV SCH (22:15)
[2022-03-13 04:03] LABS: Basophils # (auto) 0 10 ^3/uL (0-0.2); Basophils % (auto) 0.1 % (0.0-2.0); Eosinophils # (auto) 0 10 ^3/uL (0-0.8); Eosinophils % (auto) 0.2 % (0.0-7.0); Hematocrit 32.5 % (36.0-46.0); Hemoglobin 10.5 g/dL (12.2-16.2); Lymphocytes # (auto) 1.3 10 ^3/uL (0.4-5.4); Mean Corpuscular Hemoglobin 30.9 pg (28.0-32.0); Mean Corpuscular Hgb Conc. 32.2 g/dL (32.0-36.0); Mean Corpuscular Volume 96.1 fL (80.0-100.0); Monocytes # (auto) 0.7 10 ^3/uL (0-1.3); Monocytes % (auto) 6.4 % (0.0-12.0); Neutrophils # (auto) 8.7 10 ^3/uL (1.6-8.6); Neutrophils % (auto) 81.3 % (37.0-80.0); Nucleated Red Blood Cells % 0.3 %; Red Blood Cells 3.38 10^6/uL (4.0-5.20); Red Cell Distribution Width 15.8 % (11.8-14.3); White Blood Cell 10.7 10^3/uL (4.4-10.8)
[2022-03-13 04:23] LABS: Albumin 2.1 g/dL (3.4-5.0); BUN/Creatinine Ratio 6.4; Calcium 7.7 mg/dL (8.5-10.1); Potassium 3.8 mmol/L (3.5-5.1)
[2022-03-13 04:26] LABS: Bilirubin, Total 0.5 mg/dL (0.2-1.0); Total Protein 6.1 g/dL (6.4-8.2)
[2022-03-13 04:52] LABS: Urine Bacteria MANY /hpf (None Seen); Urine Blood 1+ /uL (Negative); Urine Specific Gravity 1.016 (1.001-1.035); Urine WBC 1264 /hpf (0 - 5); Urine WBC Clumps PRESENT /hpf (None Seen)
[2022-03-13] MEDS: PANTOPRAZOLE 40 MG/10 ML VIAL INJ IV SCH ×2 (14:54→21:26)
[2022-03-13 16:14] VITALS: BP 153/58
[2022-03-13 16:29] VITALS: BP 145/65
[2022-03-13 16:50] VITALS: BP 153/58
[2022-03-13 19:00] VITALS: BP 140/82
[2022-03-13 22:00] VITALS: BP 138/44
[2022-03-14 05:00] VITALS: BP 145/61
[2022-03-14 05:22] LABS: INR 1.98 (0.9-1.15)
[2022-03-14 05:29] LABS: Potassium 3.6 mmol/L (3.5-5.1)
[2022-03-14 05:36] LABS: Albumin 2.2 g/dL (3.4-5.0); BUN/Creatinine Ratio 6.4; Calcium 7.6 mg/dL (8.5-10.1)
[2022-03-14 05:43] LABS: Bilirubin, Total 0.5 mg/dL (0.2-1.0); Total Protein 6.2 g/dL (6.4-8.2)
[2022-03-14 06:05] LABS: Basophils # (auto) 0 10 ^3/uL (0-0.2); Basophils % (auto) 0.4 % (0.0-2.0); Eosinophils # (auto) 0 10 ^3/uL (0-0.8); Eosinophils % (auto) 0.3 % (0.0-7.0); Hematocrit 36.1 % (36.0-46.0); Hemoglobin 11.3 g/dL (12.2-16.2); Lymphocytes # (auto) 2.1 10 ^3/uL (0.4-5.4); Lymphocytes % (auto) 18.6 % (10.0-50.0); Mean Corpuscular Hgb Conc. 31.2 g/dL (32.0-36.0); Mean Corpuscular Volume 99.3 fL (80.0-100.0); Monocytes # (auto) 0.9 10 ^3/uL (0-1.3); Monocytes % (auto) 7.8 % (0.0-12.0); Neutrophils # (auto) 8.1 10 ^3/uL (1.6-8.6); Neutrophils % (auto) 72.9 % (37.0-80.0); Nucleated Red Blood Cells % 0.3 %; Red Blood Cells 3.64 10^6/uL (4.0-5.20); Red Cell Distribution Width 15.4 % (11.8-14.3); White Blood Cell 11.1 10^3/uL (4.4-10.8)
[2022-03-14 09:00] VITALS: BP 138/47
[2022-03-14] MEDS: PANTOPRAZOLE 40 MG/10 ML VIAL INJ IV SCH ×2 (10:39→22:11)
[2022-03-14] MEDS ORDERED: SODIUM CHL 0.9% 1000 ML BAG XX ONE (10:45)
[2022-03-14 13:00] VITALS: BP 119/61
[2022-03-14 16:46] LABS: % Iron Saturation 24.6 % (15-50)
[2022-03-14 17:00] VITALS: BP 137/57
[2022-03-14] MEDS: PIPERACILLIN-TAZOB 2.25GM 50 ML IV SCH (18:30)
[2022-03-14 22:00] VITALS: BP 108/62
[2022-03-14] MEDS: PIPERACILLIN-TAZOB 0.75 GM in D5W 5% 50 ML IV SCH (22:07)
[2022-03-15 05:00] VITALS: BP 118/57
[2022-03-15] MEDS: PIPERACILLIN-TAZOB 2.25GM 50 ML IV SCH ×2 (05:27→19:00)
[2022-03-15 08:00] VITALS: BP 139/58
[2022-03-15] MEDS: PANTOPRAZOLE 40 MG/10 ML VIAL INJ IV SCH ×2 (11:57→22:29)
[2022-03-15 12:00] VITALS: BP 141/53
[2022-03-15] MEDS ORDERED: LIDOCAINE 2% (LOCAL ANESTH.) PF 5ml SDV ONE (13:15)
[2022-03-15] MEDS ORDERED: PROPOFOL 10 MG/ML 20 ML IV ONE (13:15)
[2022-03-15 17:00] VITALS: BP 144/51
[2022-03-15] MEDS: PIPERACILLIN-TAZOB 0.75 GM in D5W 5% 50 ML IV SCH (19:45)
[2022-03-15 22:00] VITALS: BP 132/65
[2022-03-16 05:00] VITALS: BP 127/49
[2022-03-16] MEDS: PIPERACILLIN-TAZOB 2.25GM 50 ML IV SCH ×2 (05:53→17:28)
[2022-03-16] MEDS: MORPHINE SULFATE INJ 2 MG/ml SYRG IV PRN (06:07)
[2022-03-16] MEDS ORDERED: SODIUM CHL 0.9% 1000 ML BAG XX ONE (07:00)
[2022-03-16 08:45] VITALS: BP 138/57
[2022-03-16 11:14] LABS: INR 2.67 (0.9-1.15)
[2022-03-16] MEDS: PANTOPRAZOLE 40 MG/10 ML VIAL INJ IV SCH ×2 (11:32→22:52)
[2022-03-16 12:29] VITALS: BP 122/49
[2022-03-16 16:31] VITALS: BP 127/58
[2022-03-16 21:55] VITALS: BP 94/56
[2022-03-16] MEDS: PIPERACILLIN-TAZOB 0.75 GM in D5W 5% 50 ML IV SCH (22:52)
[2022-03-17] VITALS (7 sets, daily range): BP systolic 125–148; BP diastolic 44–62
[2022-03-17] MEDS: PIPERACILLIN-TAZOB 2.25GM 50 ML IV SCH ×2 (05:05→17:08)
[2022-03-17] MEDS: MORPHINE SULFATE INJ 2 MG/ml SYRG IV PRN (06:55)
[2022-03-17 08:26] LABS: Basophils # (auto) 0 10 ^3/uL (0-0.2); Basophils % (auto) 0.4 % (0.0-2.0); Eosinophils # (auto) 0.1 10 ^3/uL (0-0.8); Eosinophils % (auto) 0.9 % (0.0-7.0); Hematocrit 36.2 % (36.0-46.0); Hemoglobin 11.5 g/dL (12.2-16.2); Lymphocytes # (auto) 1.1 10 ^3/uL (0.4-5.4); Lymphocytes % (auto) 14.1 % (10.0-50.0); Mean Corpuscular Hemoglobin 30.2 pg (28.0-32.0); Mean Corpuscular Hgb Conc. 31.9 g/dL (32.0-36.0); Mean Corpuscular Volume 94.7 fL (80.0-100.0); Monocytes # (auto) 0.3 10 ^3/uL (0-1.3); Monocytes % (auto) 4.1 % (0.0-12.0); Neutrophils # (auto) 6.3 10 ^3/uL (1.6-8.6); Neutrophils % (auto) 80.5 % (37.0-80.0); Nucleated Red Blood Cells % 0.1 %; Red Blood Cells 3.82 10^6/uL (4.0-5.20); Red Cell Distribution Width 14.9 % (11.8-14.3); White Blood Cell 7.8 10^3/uL (4.4-10.8)
[2022-03-17 08:30] LABS: BUN/Creatinine Ratio 4.5; Calcium 7.2 mg/dL (8.5-10.1); Potassium 3.1 mmol/L (3.5-5.1)
[2022-03-17] MEDS: PANTOPRAZOLE 40 MG/10 ML VIAL INJ IV SCH ×2 (10:04→22:53)
[2022-03-17] MEDS: VANCOMYCIN HCL 125MG/5ML ORAL SOL PO SCH ×2 (18:10→22:54)
[2022-03-18] MEDS: PIPERACILLIN-TAZOB 2.25GM 50 ML IV SCH (04:39)
[2022-03-18 05:00] VITALS: BP 158/60
[2022-03-18] MEDS: VANCOMYCIN HCL 125MG/5ML ORAL SOL PO SCH ×3 (05:38→17:48)
[2022-03-18 08:00] VITALS: BP 153/61
[2022-03-18 09:00] VITALS: BP 153/61
[2022-03-18] MEDS: PANTOPRAZOLE 40 MG/10 ML VIAL INJ IV SCH (09:49)
[2022-03-18 13:00] VITALS: BP 146/54
[2022-03-18 14:03] LABS: INR 2.4 (0.9-1.15)
[2022-03-18 14:09] LABS: BUN/Creatinine Ratio 4.4; Calcium 7.1 mg/dL (8.5-10.1); Potassium 3.5 mmol/L (3.5-5.1)
[2022-03-18 14:40] VITALS: BP 153/61
[2022-03-18 17:00] VITALS: BP 153/73
== END 2022-03-18 19:20 | DRG 377 ==
LOC: EDBD 18:11 → ER 18:15 → TELE 20:43 → TELE-WESTW 03-13 13:20 → TELE-CENTR 03-13 19:49 → CENTRAL 03-18 11:43
PROVIDERS: ADMIT Nurse Practitioner; ATTEND Nurse Practitioner
PROC: 05H933Z Insertion of Infusion Device into Right Brachial Vein, Percutaneous Approach (ICD-10-PCS; 2022-03-13)
PROC: B54MZZA Ultrasonography of Right Upper Extremity Veins, Guidance (ICD-10-PCS; 2022-03-13)
PROC: 30233K1 Transfusion of Nonautologous Frozen Plasma into Peripheral Vein, Percutaneous Approach (ICD-10-PCS; 2022-03-13)
PROC: 5A1D70Z Performance of Urinary Filtration, Intermittent, Less than 6 Hours Per Day (ICD-10-PCS; 2022-03-14)
PROC: 0DB68ZX Excision of Stomach, Via Natural or Artificial Opening Endoscopic, Diagnostic (ICD-10-PCS; 2022-03-15)
PROC: 0DB98ZX Excision of Duodenum, Via Natural or Artificial Opening Endoscopic, Diagnostic (ICD-10-PCS; principal; 2022-03-15 13:21)
PROC: 5A1D70Z Performance of Urinary Filtration, Intermittent, Less than 6 Hours Per Day (ICD-10-PCS; 2022-03-16)
DX: K29.71 Gastritis, unspecified, with bleeding (principal); G93.41 Metabolic encephalopathy; N18.6 End stage renal disease; I12.0 Hypertensive chronic kidney disease with stage 5 chronic kidney disease or end stage renal disease; N30.01 Acute cystitis with hematuria; K44.9 Diaphragmatic hernia without obstruction or gangrene; K31.7 Polyp of stomach and duodenum; Z20.822 Contact with and (suspected) exposure to COVID-19; F03.90 Unspecified dementia, unspecified severity, without behavioral disturbance, psychotic disturbance, mood disturbance, and anxiety; E11.65 Type 2 diabetes mellitus with hyperglycemia; E78.5 Hyperlipidemia, unspecified; D63.1 Anemia in chronic kidney disease; B96.89 Other specified bacterial agents as the cause of diseases classified elsewhere; E87.6 Hypokalemia; R79.1 Abnormal coagulation profile; E11.22 Type 2 diabetes mellitus with diabetic chronic kidney disease; Z79.01 Long term (current) use of anticoagulants; Z99.2 Dependence on renal dialysis; Z83.3 Family history of diabetes mellitus; Z90.49 Acquired absence of other specified parts of digestive tract
CPT/HCPCS: 36415; 36430; 71045; 74176; 80048; 80053; 81001; 82270; 82306; 82728; 83540; 83550; 83735; 83880; 83970; 84100; 84484; 85025; 85610; 85730; 86850; 86900; 86901; 87081; 87426; 87493; 90935; 93005; 96361; 96374; 99291; C9113; G0378; J2001; J2405; J2543; J2704; J3430